=== PATIENT | female | born 1955 | race African-American/Black ===

== ENCOUNTER 2016-10-05 19:05 | Emergency (ER) | payer OTHER ==
[~2016-10-05] VITALS: Ht 154.9 cm; Wt 113.0 kg
--- NOTE | ~2016-10-05 | EKG ---
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
[2016-10-05] MEDS ORDERED: IBUPROFEN 800800 M1 PO (19:10)
[2016-10-05] MEDS ORDERED: FLEXERIL PO (19:10)
[2016-10-05] MEDS ORDERED: PREVACID15 MG PO (19:11)
[2016-10-05] MEDS ORDERED: XANAX1 MG PO (19:11)
[2016-10-05 20:43] LABS: HEMATOCRIT 37.8 % (37.0-47.0); HEMOGLOBIN 12.4 gm/dL (12.0-15.0); MCH 26.3 pg (26.0-34.0); MCHC 32.8 g/dL (28.0-37.0); MCV 80.3 fL (80.0-100.0); RBC 4.71 mil/uL (4.20-5.00); RDW 14.9 % (10.5-14.5); WBC 9.4 thou/uL (4.0-11.0)
[2016-10-05 20:48] LABS: ANION GAP 6 mmol/L (7-16); BUN 12 mg/dL (7-18); CALCIUM 8.7 mg/dL (8.5-10.1); CHLORIDE 107 mmol/L (98-107); CO2 26 mmol/L (21-32); CREATININE 0.9 mg/dL (0.6-1.3); GLUCOSE 108 mg/dL (70-99); POTASSIUM 3.8 mmol/L (3.5-5.1); SODIUM 139 mmol/L (136-145)
[2016-10-05 20:56] LABS: ALBUMIN 3.3 g/dL (3.4-5.0); ALKALINE PHOSPHATASE 104 U/L (46-116); SGOT 19 U/L (15-37); SGPT 29 U/L (30-65); TOTAL BILIRUBIN < 0.1 mg/dL (<0.1-1.0); TOTAL PROTEIN 6.6 g/dL (6.4-8.2); TROPONIN-I < 0.04 ng/mL (<0.04-0.07)
== END 2016-10-05 22:11 | disposition home or self-care (01) ==
LOC: ER 19:05
PROVIDERS: Physician Assistant
DX: R60.0 Localized edema (principal); R00.2 Palpitations; J44.9 Chronic obstructive pulmonary disease, unspecified; M79.7 Fibromyalgia; G56.03 Carpal tunnel syndrome, bilateral upper limbs; Z85.118 Personal history of other malignant neoplasm of bronchus and lung; Z88.1 Allergy status to other antibiotic agents; Z88.6 Allergy status to analgesic agent